=== PATIENT | male | born 1955 | race Caucasian/White ===

== ENCOUNTER 2023-09-20 05:30 | Inpatient (IN) | payer MEDICARE, OTHER ==
[~2023-09-20] VITALS: Ht 152.4 cm; Wt 94.3 kg
[2023-09-20] VITALS (54 sets, daily range): BP systolic 65–153; BP diastolic 33–113; TEMP 98–98.2; O2SAT 97–100
[2023-09-20] MEDS ORDERED: PIPERACI/TAZO 3.375GM/D5W 50ML PB IV ONE (06:35)
[2023-09-20] MEDS ORDERED: LEVETIRACETAM (500MG) 500 MG/5 ML VIAL IV ONE (06:35)
[2023-09-20] MEDS: LEVETIRACETAM (500MG) 1,000 MG in IV NS 0.9% 90 ML IV SCH (06:37)
[2023-09-20] MEDS: PIPERACILLIN /TAZOBACTAM 3.375 G in IV D5W 50 ML IV ONE (06:37)
[2023-09-20] MEDS: IV NS 0.9% 1,000 ML BAG IV ONE ×2 (06:37→06:47)
[2023-09-20 06:40] LABS: BASOPHILS # (AUTO) 0.1 K/uL (0.0-0.2); BASOPHILS % (AUTO) 0.9 % (0.0-2.0); EOSINOPHILS % (AUTO) 0.5 % (0.0-6.0); HEMATOCRIT 33 % (33-45); HEMOGLOBIN 10.7 g/dL (11.5-14.8); LYMPHOCYTES # (AUTO) 0.9 K/uL (0.8-4.8); LYMPHOCYTES % (AUTO) 12.3 % (20.0-44.0); MEAN CORPUSCULAR HEMOGLOBIN 32 PG (26.0-33.0); MEAN CORPUSCULAR HGB CONC 33 g/dl (31.0-36.0); MEAN CORPUSCULAR VOLUME 98 fL (82-100); MONOCYTES # (AUTO) 0.6 K/uL (0.1-1.30); MONOCYTES % (AUTO) 7.6 % (2.0-12.0); NEUTROPHILS # (AUTO) 5.9 K/uL (1.8-8.9); NEUTROPHILS % (AUTO) 78.7 % (43.0-81.0); PLATELET COUNT (AUTO) 364 K/uL (150-450); RED BLOOD CELL COUNT(AUTO) 3.35 MIL/uL (4.0-5.2); RED CELL DISTRIBUTION WIDTH 17.8 % (11.5-15.0); WHITE BLOOD COUNT (AUTO) 7.5 K/uL (4.3-11.0)
[2023-09-20 06:47] LABS: APPEARANCE,URINE SLIGHTLY CLOUDY (CLEAR); BILIRUBIN,URINE NEGATIVE (NEGATIVE); BLOOD, URINE 2+ Ery/uL (NEGATIVE); COLOR,URINE YELLOW (YELLOW); KETONES,URINE TRACE mg/dL (NEGATIVE); LEUKOCYTE ESTERASE ,URINE 2+ (NEGATIVE); NITRITE, URINE POSITIVE (NEGATIVE); PH,URINE 5.5 (5.0-8.0); PROTEIN,URINE 1+ mg/dl (NEGATIVE); UGLUCOSE NEGATIVE (NEGATIVE); UROBILINOGEN,URINE 0.2 EU/dL (0.2)
[2023-09-20 06:56] LABS: ADD URINE CULTURE YES; BACTERIA,URINE Many /HPF (None Seen); SQUAMOUS EPITHELIAL CELL,UR Rare /HPF (None Seen); WBC,URINE TOO NUMEROUS TO COUN /HPF (0-3); YEAST,URINE Few /HPF (None Seen)
[2023-09-20 07:06] LABS: CALCIUM, SERUM 8.3 mg/dL (8.5-10.1); CARBON DIOXIDE 17 mmol/L (21-32); CHLORIDE 104 mmol/L (98-107); CREATININE 1.3 mg/dL (0.6-1.3); GLUCOSE 141 mg/dL (74-106); LACTIC ACID 1.8 mmol/L (0.4-2.0); POTASSIUM 4.6 mmol/L (3.5-5.1); SODIUM SERUM 135 mmol/L (136-145); UREA NITROGEN, BLOOD 18 mg/dL (7-18)
[2023-09-20 07:06] LABS: AMPHETAMINE, URINE NEGATIVE (NEGATIVE); BARBITURATE, URINE NEGATIVE (NEGATIVE); BENZODIAZEPINE, URINE NEGATIVE (NEGATIVE); CANNABINOID, URINE NEGATIVE (NEGATIVE); COCCAINE, URINE NEGATIVE (NEGATIVE); OPIATE, URINE NEGATIVE (NEGATIVE); PHENCYCLIDINE SCREEN,URINE NEGATIVE (NEGATIVE)
[2023-09-20 07:10] LABS: ALANINE AMINOTRANSFERASE 6 U/L (12-78); ALBUMIN 1.9 g/dL (3.4-5.0); ALKALINE PHOSPHATASE 97 U/L (46-116); ASPARTATE AMINOTRANSFERASE 10 U/L (15-37); BILIRUBIN,DIRECT 0.1 mg/dL (0.0-0.2); BILIRUBIN,TOTAL 0.3 mg/dL (0.2-1.0); TOTAL PROTEIN, SERUM 7.2 g/dL (6.4-8.2)
[2023-09-20 07:13] LABS: PHENOBARBITAL 3 ug/ml (15-39); PHENYTOIN (DILANTIN) 1.2 ug/ml (10.0-20.0); VALPROIC ACID 1 ug/mL (50-100)
[2023-09-20 07:14] LABS: ALCOHOL, BLOOD < 3 mg/dL (0-10)
[2023-09-20 07:50] LABS: INR 1.05 (0.91-1.10); PARTIAL THROMBOPLASTIN TIME 32.3 SEC (24.3-34.3); PROTHROMBIN TIME 11.1 SECS (9.2-11.1)
[2023-09-20] MEDS ORDERED: LORA-259 JT (08:16)
[2023-09-20] MEDS ORDERED: MULT-213 JT (08:16)
[2023-09-20] MEDS ORDERED: ACET-2030 JT (08:16)
[2023-09-20] MEDS ORDERED: LEVE100S JT (08:16)
[2023-09-20] MEDS ORDERED: BISA10SU11 RC (08:16)
[2023-09-20] MEDS ORDERED: LACO10SO JT (08:16)
[2023-09-20] MEDS ORDERED: MIDO10TA JT (08:16)
[2023-09-20] MEDS ORDERED: LACT-96 GT (08:16)
[2023-09-20] MEDS ORDERED: ENOX30DI SQ (08:16)
[2023-09-20] MEDS ORDERED: ACET-868 JT (08:16)
[2023-09-20] MEDS ORDERED: ZINC1CAP2 JT (08:16)
[2023-09-20] MEDS ORDERED: CEFE2VIA3 IV (08:16)
[2023-09-20] MEDS ORDERED: BUME0.5T5 JT (08:16)
[2023-09-20] MEDS ORDERED: ASCO-352 JT (08:16)
[2023-09-20] MEDS ORDERED: LANS15CA13 JT (08:16)
[2023-09-20] MEDS ORDERED: CHLO473M3 MM (08:16)
[2023-09-20] MEDS ORDERED: IPRA4AER IH ×2 (08:16)
[2023-09-20] MEDS ORDERED: LEVO125T JT (08:16)
[2023-09-20] MEDS: NOREPINEPHRINE 8 MG in IV D5W 242 ML IV PRN ×2 (08:24→11:34)
[2023-09-20] MEDS ORDERED: LORAZEPAM INJ 2 MG/ML VIAL ONE (09:20)
[2023-09-20] MEDS: LORAZEPAM 4 MG/ML VIAL IV ONE (09:24)
[2023-09-20] MEDS: VANCOMYCIN HCL 1.25 GM in IV D5W 260 ML IV ONE (09:30)
[2023-09-20] MEDS ORDERED: MORPHINE SULFATE INJ 2 MG/ML DISP.SYRIN IV PRN (10:00)
[2023-09-20] MEDS ORDERED: ONDANSETRON HCL/PF 4 MG/2 ML VIAL IVP PRN (10:00)
[2023-09-20] MEDS ORDERED: JEVITY 1.5 CAL LIQUID 1,000 ML BOTTLE GT SCH (10:00)
[2023-09-20] MEDS ORDERED: LORAZEPAM 1 MG TABLET JT PRN (10:00)
[2023-09-20] MEDS: ATROPINE SULFATE 1 MG/10 ML DISP.SYRIN ONE (10:20)
[2023-09-20] MEDS: AZITHROMYCIN 500 MG in IV D5W 250 ML IV SCH (10:26)
[2023-09-20] MEDS: ATROPINE SULFATE INJ 1 MG/ML VIAL IV ONE (10:30)
[2023-09-20] MEDS ORDERED: ACETAMINOPHEN 650 MG/20.3 ML UDC GT PRN (10:30)
[2023-09-20] MEDS: MEROPENEM 1 G in IV NS 0.9% 100 ML IV SCH (11:00)
[2023-09-20] MEDS: ENOXAPARIN SODIUM 30 MG/0.3 ML DISP.SYRIN SQ SCH (11:36)
[2023-09-20] MEDS: MIDODRINE HCL (5MG) 5 MG TABLET GT SCH (12:08)
[2023-09-20] MEDS ORDERED: LORAZEPAM INJ 2 MG/ML VIAL IV PRN (12:30)
[2023-09-20] MEDS ORDERED: PHENYLEPHRINE 50 MG in IV NS 0.9% 245 ML IV PRN (13:30)
[2023-09-20] MEDS: LORAZEPAM INJ 2 MG/ML VIAL IV PRN (14:01)
[2023-09-20] MEDS ORDERED: LACOSAMIDE ORAL SOLN 50 MG/5 ML UDC GT SCH (17:00)
[2023-09-20] MEDS: CHLORHEXIDINE GLUCONATE 15 ML UDC MM SCH (17:43)
[2023-09-20] MEDS: ALBUMIN 25% 25 GM in PREMIX 1 EA IV SCH (18:13)
[2023-09-20] MEDS: LACOSAMIDE 200 MG in IV NS 0.9% 100 ML IV SCH (18:13)
[2023-09-20 19:19] LABS: THYROID STIMULATING HORMONE 18.86 uIU/mL (0.358-3.74)
[2023-09-20] MEDS: NOREPINEPHRINE 32 MG in IV NS 0.9% 218 ML IV PRN (20:36)
[2023-09-20] MEDS ORDERED: LEVETIRACETAM SOL (5 ML) 100 MG/ML UDC JT SCH (21:00)
[2023-09-20] MEDS ORDERED: NOREPINEPHRINE 32 MG in IV NS 0.9% 250 ML IV PRN (21:00)
[2023-09-20] MEDS: LEVETIRACETAM (500MG) 1,500 MG in IV NS 0.9% 85 ML IV SCH (21:31)
[2023-09-20] MEDS: IV NS 0.9% 250 ML IV PRN (21:40)
[2023-09-20] MEDS ORDERED: CEFEPIME 1 GM VIAL ONE (21:59)
[2023-09-20] MEDS: CEFEPIME 1 GM in IV D5W 50 ML IV SCH (22:09)
[2023-09-21] VITALS (98 sets, daily range): BP systolic 81–185; BP diastolic 23–162; TEMP 97.7–98.2; O2SAT 95–100
[2023-09-21 04:55] LABS: ALBUMIN 2.1 g/dL (3.4-5.0); BASOPHILS # (AUTO) 0.1 K/uL (0.0-0.2); BASOPHILS % (AUTO) 0.9 % (0.0-2.0); BILIRUBIN,TOTAL 0.3 mg/dL (0.2-1.0); CALCIUM, SERUM 8.7 mg/dL (8.5-10.1); CREATININE 1.5 mg/dL (0.6-1.3); EOSINOPHILS % (AUTO) 0.3 % (0.0-6.0); HEMATOCRIT 32 % (39-51); HEMOGLOBIN 10.5 g/dL (13.5-17.5); LYMPHOCYTES # (AUTO) 1.2 K/uL (0.8-4.8); LYMPHOCYTES % (AUTO) 15.6 % (20.0-44.0); MAGNESIUM 2.5 mg/dL (1.8-2.4); MEAN CORPUSCULAR HEMOGLOBIN 32 PG (26.0-33.0); MEAN CORPUSCULAR HGB CONC 33 g/dl (31.0-36.0); MEAN CORPUSCULAR VOLUME 97 fL (80-96); MONOCYTES # (AUTO) 0.7 K/uL (0.1-1.30); MONOCYTES % (AUTO) 8.6 % (2.0-12.0); NEUTROPHILS % (AUTO) 74.6 % (43.0-81.0); PHOSPHORUS 2.2 mg/dL (2.5-4.9); PLATELET COUNT (AUTO) 366 K/uL (150-450); POTASSIUM 3.7 mmol/L (3.5-5.1); RED BLOOD CELL COUNT(AUTO) 3.34 MIL/uL (4.5-6.0); RED CELL DISTRIBUTION WIDTH 17.3 % (11.5-15.0)
[2023-09-21] MEDS ORDERED: BUMETANIDE INJ 0.25 MG/ML VIAL IV SCH (09:00)
[2023-09-21] MEDS ORDERED: BUMETANIDE (1 MG) 1 MG TABLET JT SCH (09:00)
[2023-09-21] MEDS: LEVOTHYROXINE SODIUM 125 MCG TABLET GT SCH (09:37)
[2023-09-21] MEDS: CEFEPIME 1 GM in IV D5W 50 ML IV SCH (09:37)
[2023-09-21] MEDS: POTASSIUM PHOSPHATE MM 7.5 MMOL in IV NS 0.9% 100 ML IV SCH (10:00)
[2023-09-21] MEDS ORDERED: POTASSIUM PHOSPHATE MM 15 MMOL in IV NS 0.9% 250 ML IV SCH (11:00)
[2023-09-22] VITALS (68 sets, daily range): BP systolic 81–140; BP diastolic 50–105; TEMP 98–98.3; O2SAT 97–100
[2023-09-22 04:45] LABS: CALCIUM, SERUM 9.2 mg/dL (8.5-10.1); CREATININE 1.2 mg/dL (0.6-1.3); MAGNESIUM 2.5 mg/dL (1.8-2.4); PHOSPHORUS 1.8 mg/dL (2.5-4.9); POTASSIUM 3.6 mmol/L (3.5-5.1)
[2023-09-22 04:52] LABS: BASOPHILS # (AUTO) 0.1 K/uL (0.0-0.2); BASOPHILS % (AUTO) 1.9 % (0.0-2.0); EOSINOPHILS # (AUTO) 0.1 K/uL (0.0-0.7); HEMATOCRIT 29 % (39-51); HEMOGLOBIN 9.6 g/dL (13.5-17.5); LYMPHOCYTES # (AUTO) 1.3 K/uL (0.8-4.8); MEAN CORPUSCULAR HEMOGLOBIN 32 PG (26.0-33.0); MEAN CORPUSCULAR HGB CONC 33 g/dl (31.0-36.0); MEAN CORPUSCULAR VOLUME 97 fL (80-96); MONOCYTES # (AUTO) 0.4 K/uL (0.1-1.30); MONOCYTES % (AUTO) 7.4 % (2.0-12.0); NEUTROPHILS # (AUTO) 3.5 K/uL (1.8-8.9); NEUTROPHILS % (AUTO) 64.7 % (43.0-81.0); PLATELET COUNT (AUTO) 314 K/uL (150-450); RED CELL DISTRIBUTION WIDTH 17.6 % (11.5-15.0); WHITE BLOOD COUNT (AUTO) 5.4 K/uL (4.3-11.0)
[2023-09-22 07:09] LABS: FOLIC ACID 9.6 ng/mL (>3.0)
[2023-09-22] MEDS: NEUTRA PHOS 1 POWD.PACKET GT SCH (10:51)
[2023-09-23] VITALS (78 sets, daily range): BP systolic 74–149; BP diastolic 43–99; TEMP 97.9–98.3; O2SAT 90–100
[2023-09-23] MEDS: LEVOTHYROXINE INJ 100 MCG VIAL IV STA (09:49)
[2023-09-23] MEDS: JEVITY 1.2 CAL 1,000 ML BOTTLE GT PRN (10:29)
[2023-09-23] MEDS ORDERED: DOPamine 400 MG/D5W 250 ML RTU BAG IV SCH (20:30)
[2023-09-23] MEDS: DOPamine 400MG/D5W 250ML RTU 250 ML ONE (22:22)
[2023-09-23] MEDS: DOPamine 400 MG in IV D5W 250 ML IV PRN (22:27)
[2023-09-24] VITALS (85 sets, daily range): BP systolic 72–159; BP diastolic 40–93; TEMP 97.8–99; O2SAT 92–100
[2023-09-24 05:00] LABS: BASOPHILS # (AUTO) 0.1 K/uL (0.0-0.2); BASOPHILS % (AUTO) 1.1 % (0.0-2.0); EOSINOPHILS # (AUTO) 0.2 K/uL (0.0-0.7); HEMATOCRIT 33 % (39-51); HEMOGLOBIN 10.7 g/dL (13.5-17.5); LYMPHOCYTES # (AUTO) 1.8 K/uL (0.8-4.8); LYMPHOCYTES % (AUTO) 27.1 % (20.0-44.0); MEAN CORPUSCULAR HEMOGLOBIN 32 PG (26.0-33.0); MEAN CORPUSCULAR HGB CONC 33 g/dl (31.0-36.0); MEAN CORPUSCULAR VOLUME 98 fL (80-96); MONOCYTES # (AUTO) 0.4 K/uL (0.1-1.30); MONOCYTES % (AUTO) 6.4 % (2.0-12.0); NEUTROPHILS # (AUTO) 4.1 K/uL (1.8-8.9); NEUTROPHILS % (AUTO) 62.4 % (43.0-81.0); PLATELET COUNT (AUTO) 342 K/uL (150-450); RED BLOOD CELL COUNT(AUTO) 3.37 MIL/uL (4.5-6.0); RED CELL DISTRIBUTION WIDTH 17.2 % (11.5-15.0); WHITE BLOOD COUNT (AUTO) 6.6 K/uL (4.3-11.0)
[2023-09-24 05:46] LABS: CALCIUM, SERUM 8.3 mg/dL (8.5-10.1); CREATININE 0.9 mg/dL (0.6-1.3); MAGNESIUM 2.3 mg/dL (1.8-2.4); PHOSPHORUS 2.5 mg/dL (2.5-4.9); POTASSIUM 3.3 mmol/L (3.5-5.1)
[2023-09-24] MEDS: POTASSIUM CL. PREMIX PERIPHER. 50 ML IV SCH (07:56)
[2023-09-24] MEDS: LEVOTHYROXINE SODIUM 125 MCG TABLET GT SCH (08:38)
[2023-09-24] MEDS: MEROPENEM 1 G in IV NS 0.9% 100 ML IV SCH (15:34)
[2023-09-24] MEDS: GENTAMICIN 320 MG in IV D5W 100 ML IV ONE (21:50)
[2023-09-25] VITALS (96 sets, daily range): BP systolic 76–157; BP diastolic 31–121; TEMP 98.5–98.9; O2SAT 95–100
[2023-09-25] MEDS: DOPamine 400MG/D5W 250ML RTU 250 ML ONE (01:51)
[2023-09-25 05:03] LABS: BASOPHILS # (AUTO) 0.1 K/uL (0.0-0.2); BASOPHILS % (AUTO) 1.4 % (0.0-2.0); EOSINOPHILS # (AUTO) 0.2 K/uL (0.0-0.7); EOSINOPHILS % (AUTO) 4.3 % (0.0-6.0); HEMATOCRIT 36 % (39-51); HEMOGLOBIN 11.7 g/dL (13.5-17.5); LYMPHOCYTES # (AUTO) 1.3 K/uL (0.8-4.8); LYMPHOCYTES % (AUTO) 27.1 % (20.0-44.0); MEAN CORPUSCULAR HEMOGLOBIN 32 PG (26.0-33.0); MEAN CORPUSCULAR HGB CONC 33 g/dl (31.0-36.0); MEAN CORPUSCULAR VOLUME 98 fL (80-96); MONOCYTES # (AUTO) 0.4 K/uL (0.1-1.30); MONOCYTES % (AUTO) 7.8 % (2.0-12.0); NEUTROPHILS # (AUTO) 2.9 K/uL (1.8-8.9); NEUTROPHILS % (AUTO) 59.4 % (43.0-81.0); PLATELET COUNT (AUTO) 348 K/uL (150-450); RED BLOOD CELL COUNT(AUTO) 3.64 MIL/uL (4.5-6.0); RED CELL DISTRIBUTION WIDTH 17.6 % (11.5-15.0); WHITE BLOOD COUNT (AUTO) 4.9 K/uL (4.3-11.0)
[2023-09-25 05:20] LABS: CALCIUM, SERUM 8.6 mg/dL (8.5-10.1); MAGNESIUM 2.3 mg/dL (1.8-2.4); PHOSPHORUS 3.1 mg/dL (2.5-4.9); POTASSIUM 3.9 mmol/L (3.5-5.1)
[2023-09-25] MEDS: ALBUTEROL FS 2.5 MG/3 ML VIAL.NEB NEB SCH (08:54)
[2023-09-25] MEDS: GLUCERNA 1.2 1,000 ML BOTTLE NG PRN (11:22)
[2023-09-26] VITALS (81 sets, daily range): BP systolic 68–159; BP diastolic 44–139; TEMP 98–98.9; O2SAT 92–100
[2023-09-26 04:08] LABS: BASOPHILS # (AUTO) 0.1 K/uL (0.0-0.2); BASOPHILS % (AUTO) 1.2 % (0.0-2.0); EOSINOPHILS # (AUTO) 0.2 K/uL (0.0-0.7); EOSINOPHILS % (AUTO) 3.5 % (0.0-6.0); HEMATOCRIT 32 % (39-51); HEMOGLOBIN 10.2 g/dL (13.5-17.5); LYMPHOCYTES # (AUTO) 1.3 K/uL (0.8-4.8); LYMPHOCYTES % (AUTO) 20.9 % (20.0-44.0); MEAN CORPUSCULAR HEMOGLOBIN 32 PG (26.0-33.0); MEAN CORPUSCULAR HGB CONC 32 g/dl (31.0-36.0); MEAN CORPUSCULAR VOLUME 99 fL (80-96); MONOCYTES # (AUTO) 0.5 K/uL (0.1-1.30); MONOCYTES % (AUTO) 8.5 % (2.0-12.0); NEUTROPHILS % (AUTO) 65.9 % (43.0-81.0); PLATELET COUNT (AUTO) 339 K/uL (150-450); RED CELL DISTRIBUTION WIDTH 17.6 % (11.5-15.0)
[2023-09-26 04:34] LABS: CALCIUM, SERUM 8.5 mg/dL (8.5-10.1); POTASSIUM 4.3 mmol/L (3.5-5.1)
[2023-09-26] MEDS: LEVETIRACETAM SOL (5 ML) 100 MG/ML UDC GT SCH (08:40)
[2023-09-26] MEDS: LACOSAMIDE ORAL SOLN 50 MG/5 ML UDC NG SCH (08:51)
[2023-09-26] MEDS: GENTAMICIN 320 MG in IV D5W 100 ML IV SCH (09:42)
[2023-09-26] MEDS: FLUDROCORTISONE 0.1 MG TABLET GT SCH (10:21)
[2023-09-26] MEDS: HYDROCORTISONE SOD SUCCINATE 100 MG/2 ML VIAL IV SCH (12:06)
[2023-09-26] MEDS ORDERED: NS 0.9% IV PRN (16:00)
[2023-09-26] MEDS ORDERED: ISOPROTERENOL HCL IV PRN (16:00)
[2023-09-26] MEDS: LACTULOSE 10 G/15 ML UDC (PYXIS) PEG ONE (17:00)
[2023-09-27] VITALS (96 sets, daily range): BP systolic 77–180; BP diastolic 45–148; TEMP 97.8–98.5; O2SAT 92–100
[2023-09-27 05:43] LABS: BASOPHILS % (AUTO) 0.1 % (0.0-2.0); HEMATOCRIT 30 % (39-51); HEMOGLOBIN 9.8 g/dL (13.5-17.5); LYMPHOCYTES # (AUTO) 0.8 K/uL (0.8-4.8); LYMPHOCYTES % (AUTO) 12.3 % (20.0-44.0); MEAN CORPUSCULAR HEMOGLOBIN 32 PG (26.0-33.0); MEAN CORPUSCULAR HGB CONC 32 g/dl (31.0-36.0); MEAN CORPUSCULAR VOLUME 98 fL (80-96); MONOCYTES # (AUTO) 0.1 K/uL (0.1-1.30); MONOCYTES % (AUTO) 2.1 % (2.0-12.0); NEUTROPHILS # (AUTO) 5.3 K/uL (1.8-8.9); NEUTROPHILS % (AUTO) 85.5 % (43.0-81.0); PLATELET COUNT (AUTO) 300 K/uL (150-450); RED BLOOD CELL COUNT(AUTO) 3.06 MIL/uL (4.5-6.0); RED CELL DISTRIBUTION WIDTH 17.6 % (11.5-15.0); WHITE BLOOD COUNT (AUTO) 6.2 K/uL (4.3-11.0)
[2023-09-27 05:51] LABS: CALCIUM, SERUM 9.2 mg/dL (8.5-10.1); POTASSIUM 4.6 mmol/L (3.5-5.1)
[2023-09-27] MEDS: ENOXAPARIN SODIUM 40 MG/0.4 ML DISP.SYRIN SQ SCH (08:43)
[2023-09-27] MEDS: MAGNESIUM HYDROXIDE 30 ML UDC PO ONE (11:02)
[2023-09-27] MEDS: NA PHOS,M-B/NA PHOS,DI-BA 1 EA ENEMA RC ONE (16:13)
[2023-09-27] MEDS: DOCUSATE SODIUM LIQ 100 MG/10 ML UDC GT SCH (16:13)
[2023-09-27] MEDS: BISACODYL SUPP (10 MG) 10 MG/SUPP.RECT SUPP.RECT RC PRN (16:15)
[2023-09-27] MEDS: METOCLOPRAMIDE HCL 10 MG/2 ML VIAL IV SCH (16:37)
[2023-09-27] MEDS: LEVETIRACETAM (500MG) 1,500 MG in IV NS 0.9% 85 ML IV SCH (21:16)
[2023-09-27] MEDS: LACOSAMIDE ORAL SOLN 50 MG/5 ML UDC ONE ×2 (21:54→21:55)
[2023-09-28] VITALS (95 sets, daily range): BP systolic 99–172; BP diastolic 41–134; TEMP 97.8–98.2; O2SAT 99–100
[2023-09-28 05:00] LABS: BASOPHILS % (AUTO) 0.3 % (0.0-2.0); HEMATOCRIT 34 % (39-51); HEMOGLOBIN 11.3 g/dL (13.5-17.5); LYMPHOCYTES # (AUTO) 0.8 K/uL (0.8-4.8); LYMPHOCYTES % (AUTO) 12.9 % (20.0-44.0); MEAN CORPUSCULAR HEMOGLOBIN 32 PG (26.0-33.0); MEAN CORPUSCULAR HGB CONC 33 g/dl (31.0-36.0); MEAN CORPUSCULAR VOLUME 97 fL (80-96); MONOCYTES # (AUTO) 0.3 K/uL (0.1-1.30); MONOCYTES % (AUTO) 5.1 % (2.0-12.0); NEUTROPHILS # (AUTO) 4.9 K/uL (1.8-8.9); NEUTROPHILS % (AUTO) 81.7 % (43.0-81.0); PLATELET COUNT (AUTO) 395 K/uL (150-450); RED CELL DISTRIBUTION WIDTH 17.6 % (11.5-15.0)
[2023-09-28 05:10] LABS: CALCIUM, SERUM 9.4 mg/dL (8.5-10.1); CREATININE 1.2 mg/dL (0.6-1.3)
[2023-09-28] MEDS: LEVOTHYROXINE INJ 100 MCG VIAL IV SCH (08:09)
[2023-09-28] MEDS: VIMPAT 200 MG in IV NS 0.9% 100 ML IV SCH (09:19)
[2023-09-29] VITALS (95 sets, daily range): BP systolic 95–206; BP diastolic 50–146; TEMP 97.8–98.1; O2SAT 91–100
[2023-09-29 05:16] LABS: BASOPHILS % (AUTO) 0.2 % (0.0-2.0); HEMATOCRIT 33 % (39-51); HEMOGLOBIN 10.7 g/dL (13.5-17.5); LYMPHOCYTES # (AUTO) 0.7 K/uL (0.8-4.8); LYMPHOCYTES % (AUTO) 13.8 % (20.0-44.0); MEAN CORPUSCULAR HEMOGLOBIN 32 PG (26.0-33.0); MEAN CORPUSCULAR HGB CONC 33 g/dl (31.0-36.0); MEAN CORPUSCULAR VOLUME 98 fL (80-96); MONOCYTES # (AUTO) 0.3 K/uL (0.1-1.30); MONOCYTES % (AUTO) 5.4 % (2.0-12.0); NEUTROPHILS % (AUTO) 80.6 % (43.0-81.0); PLATELET COUNT (AUTO) 382 K/uL (150-450); RED BLOOD CELL COUNT(AUTO) 3.34 MIL/uL (4.5-6.0); RED CELL DISTRIBUTION WIDTH 17.4 % (11.5-15.0)
[2023-09-29 05:27] LABS: CALCIUM, SERUM 9.2 mg/dL (8.5-10.1); CREATININE 1.1 mg/dL (0.6-1.3); POTASSIUM 3.7 mmol/L (3.5-5.1)
[2023-09-29] MEDS: LEVOTHYROXINE SODIUM 125 MCG TABLET GT SCH (08:00)
[2023-09-29] MEDS ORDERED: NOREPINEPHRINE 8 MG in IV D5W 250ML IV PRN (10:30)
[2023-09-29] MEDS: VIMPAT 200 MG in IV NS 0.9% 100 ML IV SCH (19:43)
[2023-09-30] VITALS (91 sets, daily range): BP systolic 85–154; BP diastolic 48–134; TEMP 98–98.7; O2SAT 100
[2023-09-30 04:48] LABS: BASOPHILS % (AUTO) 0.2 % (0.0-2.0); EOSINOPHILS % (AUTO) 0.1 % (0.0-6.0); HEMATOCRIT 29 % (39-51); HEMOGLOBIN 9.7 g/dL (13.5-17.5); LYMPHOCYTES # (AUTO) 0.7 K/uL (0.8-4.8); LYMPHOCYTES % (AUTO) 18.7 % (20.0-44.0); MEAN CORPUSCULAR HEMOGLOBIN 32 PG (26.0-33.0); MEAN CORPUSCULAR HGB CONC 33 g/dl (31.0-36.0); MEAN CORPUSCULAR VOLUME 97 fL (80-96); MONOCYTES # (AUTO) 0.3 K/uL (0.1-1.30); MONOCYTES % (AUTO) 7.9 % (2.0-12.0); NEUTROPHILS # (AUTO) 2.8 K/uL (1.8-8.9); NEUTROPHILS % (AUTO) 73.1 % (43.0-81.0); PLATELET COUNT (AUTO) 296 K/uL (150-450); WHITE BLOOD COUNT (AUTO) 3.8 K/uL (4.3-11.0)
[2023-09-30 05:13] LABS: CALCIUM, SERUM 9.2 mg/dL (8.5-10.1); CREATININE 1.1 mg/dL (0.6-1.3); POTASSIUM 3.1 mmol/L (3.5-5.1)
[2023-09-30] MEDS ORDERED: POTASSIUM CHLORIDE 20 MEQ TAB.PRT.SR PO SCH (09:30)
[2023-09-30] MEDS: POTASSIUM CHLORIDE 20 MEQ POWDER PACKET GT SCH (10:11)
[2023-09-30] MEDS: LEVETIRACETAM IV SCH (20:40)
[2023-09-30] MEDS: NS 0.9% IV SCH (20:40)
[2023-10-01] VITALS (64 sets, daily range): BP systolic 95–167; BP diastolic 36–105; TEMP 97–98.7; O2SAT 99–100
[2023-10-01 04:38] LABS: BASOPHILS % (AUTO) 0.4 % (0.0-2.0); HEMATOCRIT 28 % (39-51); HEMOGLOBIN 9.2 g/dL (13.5-17.5); LYMPHOCYTES # (AUTO) 0.8 K/uL (0.8-4.8); LYMPHOCYTES % (AUTO) 19.8 % (20.0-44.0); MEAN CORPUSCULAR HEMOGLOBIN 32 PG (26.0-33.0); MEAN CORPUSCULAR HGB CONC 33 g/dl (31.0-36.0); MEAN CORPUSCULAR VOLUME 98 fL (80-96); MONOCYTES # (AUTO) 0.3 K/uL (0.1-1.30); MONOCYTES % (AUTO) 8.6 % (2.0-12.0); NEUTROPHILS # (AUTO) 2.7 K/uL (1.8-8.9); NEUTROPHILS % (AUTO) 71.2 % (43.0-81.0); PLATELET COUNT (AUTO) 253 K/uL (150-450); RED BLOOD CELL COUNT(AUTO) 2.83 MIL/uL (4.5-6.0); RED CELL DISTRIBUTION WIDTH 17.6 % (11.5-15.0); WHITE BLOOD COUNT (AUTO) 3.8 K/uL (4.3-11.0)
[2023-10-01 04:58] LABS: CALCIUM, SERUM 8.6 mg/dL (8.5-10.1); CREATININE 1.2 mg/dL (0.6-1.3); POTASSIUM 3.2 mmol/L (3.5-5.1)
[2023-10-01] MEDS: POTASSIUM CL. PREMIX PERIPHER. 50 ML IV SCH (10:56)
[2023-10-02] VITALS (23 sets, daily range): BP systolic 95–167; BP diastolic 43–140; TEMP 97.8–98.2; O2SAT 99–100
[2023-10-02 04:28] LABS: BASOPHILS % (AUTO) 0.1 % (0.0-2.0); HEMATOCRIT 28 % (39-51); HEMOGLOBIN 9.2 g/dL (13.5-17.5); LYMPHOCYTES # (AUTO) 0.7 K/uL (0.8-4.8); MEAN CORPUSCULAR HEMOGLOBIN 32 PG (26.0-33.0); MEAN CORPUSCULAR HGB CONC 32 g/dl (31.0-36.0); MEAN CORPUSCULAR VOLUME 98 fL (80-96); MONOCYTES # (AUTO) 0.2 K/uL (0.1-1.30); MONOCYTES % (AUTO) 6.3 % (2.0-12.0); NEUTROPHILS # (AUTO) 2.5 K/uL (1.8-8.9); NEUTROPHILS % (AUTO) 73.6 % (43.0-81.0); PLATELET COUNT (AUTO) 226 K/uL (150-450); RED BLOOD CELL COUNT(AUTO) 2.89 MIL/uL (4.5-6.0); RED CELL DISTRIBUTION WIDTH 17.6 % (11.5-15.0); WHITE BLOOD COUNT (AUTO) 3.4 K/uL (4.3-11.0)
[2023-10-02 04:37] LABS: CALCIUM, SERUM 8.4 mg/dL (8.5-10.1); CREATININE 1.1 mg/dL (0.6-1.3); POTASSIUM 3.1 mmol/L (3.5-5.1)
[2023-10-02] MEDS: POTASSIUM CL. PREMIX PERIPHER. 50 ML IV SCH (08:13)
[2023-10-02] MEDS: HYDROCORTISONE SOD SUCCINATE 100 MG/2 ML VIAL IV SCH ×2 (13:26→20:36)
[2023-10-03] VITALS (25 sets, daily range): BP systolic 135–168; BP diastolic 62–110; TEMP 98–98.8; O2SAT 97–100
[2023-10-03 04:08] LABS: BASOPHILS % (AUTO) 0.1 % (0.0-2.0); EOSINOPHILS % (AUTO) 0.1 % (0.0-6.0); HEMATOCRIT 31 % (39-51); HEMOGLOBIN 10.2 g/dL (13.5-17.5); MEAN CORPUSCULAR HEMOGLOBIN 33 PG (26.0-33.0); MEAN CORPUSCULAR HGB CONC 33 g/dl (31.0-36.0); MEAN CORPUSCULAR VOLUME 98 fL (80-96); MONOCYTES # (AUTO) 0.4 K/uL (0.1-1.30); MONOCYTES % (AUTO) 5.8 % (2.0-12.0); NEUTROPHILS # (AUTO) 5.4 K/uL (1.8-8.9); PLATELET COUNT (AUTO) 242 K/uL (150-450); RED BLOOD CELL COUNT(AUTO) 3.14 MIL/uL (4.5-6.0); RED CELL DISTRIBUTION WIDTH 17.7 % (11.5-15.0); WHITE BLOOD COUNT (AUTO) 6.9 K/uL (4.3-11.0)
[2023-10-03 04:26] LABS: CALCIUM, SERUM 7.8 mg/dL (8.5-10.1); POTASSIUM 3.1 mmol/L (3.5-5.1)
[2023-10-03] MEDS: POTASSIUM CL. PREMIX PERIPHER. 50 ML IV SCH (08:29)
[2023-10-04] VITALS (18 sets, daily range): BP systolic 118–166; BP diastolic 56–84; TEMP 97.5–98.2; O2SAT 99–100
[2023-10-04 04:01] LABS: BASOPHILS % (AUTO) 0.1 % (0.0-2.0); EOSINOPHILS # (AUTO) 0.1 K/uL (0.0-0.7); EOSINOPHILS % (AUTO) 1.1 % (0.0-6.0); HEMATOCRIT 31 % (39-51); HEMOGLOBIN 9.9 g/dL (13.5-17.5); LYMPHOCYTES # (AUTO) 1.4 K/uL (0.8-4.8); LYMPHOCYTES % (AUTO) 25.7 % (20.0-44.0); MEAN CORPUSCULAR HEMOGLOBIN 32 PG (26.0-33.0); MEAN CORPUSCULAR HGB CONC 32 g/dl (31.0-36.0); MEAN CORPUSCULAR VOLUME 100 fL (80-96); MONOCYTES # (AUTO) 0.4 K/uL (0.1-1.30); MONOCYTES % (AUTO) 6.8 % (2.0-12.0); NEUTROPHILS # (AUTO) 3.7 K/uL (1.8-8.9); NEUTROPHILS % (AUTO) 66.3 % (43.0-81.0); PLATELET COUNT (AUTO) 219 K/uL (150-450); RED BLOOD CELL COUNT(AUTO) 3.08 MIL/uL (4.5-6.0); RED CELL DISTRIBUTION WIDTH 18.2 % (11.5-15.0); WHITE BLOOD COUNT (AUTO) 5.6 K/uL (4.3-11.0)
[2023-10-04 04:36] LABS: CALCIUM, SERUM 7.9 mg/dL (8.5-10.1); POTASSIUM 2.9 mmol/L (3.5-5.1)
[2023-10-04] MEDS ORDERED: IV D5/0.45 NACL 1,000 ML IV SCH (07:30)
[2023-10-04] MEDS: Potassium Chloride 40 MEQ in IV D5/0.45 NACL 1,000 ML IV ONE (08:18)
== END 2023-10-04 17:54 | DRG 870 ==
LOC: ER 05:43 → ICU 08:33 → EDSEX 08:33
PROVIDERS: ADMIT Internal Medicine; ATTEND Internal Medicine
PROC: 5A1955Z Respiratory Ventilation, Greater than 96 Consecutive Hours (ICD-10-PCS; principal; 2023-09-20)
PROC: 02HV33Z Insertion of Infusion Device into Superior Vena Cava, Percutaneous Approach (ICD-10-PCS; 2023-09-20)
PROC: B548ZZA Ultrasonography of Superior Vena Cava, Guidance (ICD-10-PCS; 2023-09-20)
DX: A41.9 Sepsis, unspecified organism (principal); R65.21 Severe sepsis with septic shock; G93.41 Metabolic encephalopathy; N17.0 Acute kidney failure with tubular necrosis; J96.10 Chronic respiratory failure, unspecified whether with hypoxia or hypercapnia; N39.0 Urinary tract infection, site not specified; Z99.11 Dependence on respirator [ventilator] status; E44.0 Moderate protein-calorie malnutrition; E87.20 Acidosis, unspecified; K31.6 Fistula of stomach and duodenum; K94.23 Gastrostomy malfunction; Z66 Do not resuscitate; R13.10 Dysphagia, unspecified; Q90.9 Down syndrome, unspecified; Z51.5 Encounter for palliative care; G40.909 Epilepsy, unspecified, not intractable, without status epilepticus; Z79.890 Hormone replacement therapy; Z79.01 Long term (current) use of anticoagulants; Z79.51 Long term (current) use of inhaled steroids; Z79.899 Other long term (current) drug therapy; B96.89 Other specified bacterial agents as the cause of diseases classified elsewhere; T36.1X5A Adverse effect of cephalosporins and other beta-lactam antibiotics, initial encounter; Y92.129 Unspecified place in nursing home as the place of occurrence of the external cause; I48.91 Unspecified atrial fibrillation; D64.9 Anemia, unspecified; I50.9 Heart failure, unspecified; E88.09 Other disorders of plasma-protein metabolism, not elsewhere classified; L89.159 Pressure ulcer of sacral region, unspecified stage; B96.20 Unspecified Escherichia coli [E. coli] as the cause of diseases classified elsewhere; R00.1 Bradycardia, unspecified; Y83.3 Surgical operation with formation of external stoma as the cause of abnormal reaction of the patient, or of later complication, without mention of misadventure at the time of the procedure; Y82.8 Other medical devices associated with adverse incidents; Y92.89 Other specified places as the place of occurrence of the external cause
CPT/HCPCS: 31720; 36415; 36569; 36600; 70450-TC; 71045-TC; 74018; 80048-TC; 80053-TC; 80061-TC; 80076-TC; 80164-TC; 80170-TC; 80184; 80185-TC; 81001; 82533; 82607-TC; 82803-TC; 82962-TC; 83605-TC; 83735-TC; 83921; 84100-TC; 84439-TC; 84443-TC; 84481; 85025-TC; 85730-TC; 87040-TC; 87081-TC; 87086-TC; 94002-TC; 94003-TC; 94760-TC; 94762-TC; 94799-TC; 99082-TC; A4216; A4223; A6253; A6403; A7526; G0378; G0480; J0456; J0461; J0692; J1265; J1580; J1650; J1720; J1953; J2060; J2185; J2543; J2765; J3480; J3490; J7030; J7040; J7050; J7060; P9047